=== PATIENT | female | born 1995 | race Caucasian/White ===

== ENCOUNTER 2016-11-22 16:30 | Emergency (ER) | payer MEDICAID ==
--- NOTE | 2016-11-22 17:20 | EDPHY ---
H & P Time Seen by Provider: 11/22/16 16:55 HPI/ROS: CHIEF COMPLAINT: Feels the need to take a deep breath HISTORY OF PRESENT ILLNESS: This patient is a 21 year old female with history of asthma complaining of an insatiable need to take a deep breath. She returned to [place] 10 days ago from [place], where she spent the summer. Since returning, she has experienced difficulty breathing and has been using her albuterol inhaler multiple times per day. Today , she has felt it is nearly impossible to take a deep breath, and has a tight feeling in her lungs. She usually uses her inhaler prior to exercise only. She did have a stressful summer, and has been feeling "off" since coming home. A phone nurse at her primary care physician's office recommended evaluation at the emergency department due to the patient's complaint of difficulty breathing. She denies cough, fever or other associated symptoms. REVIEW OF SYSTEMS: A 10 point review of systems was performed and is negative with the exception of the elements mentioned in the history of present illness. Past Medical/Surgical History: Asthma (allergy and exercise-induced) Social History: [employer] student. Lives in [place]. Smoking Status: Never smoked Physical Exam: General Appearance: Alert, pleasant, occasionally take an extra deep breath Eyes: Pupils equal and round, no conjunctival pallor or injection ENT, Mouth: Mucous membranes moist Neck: Normal inspection Respiratory: normal respiratory rate, lungs are clear to auscultation, no wheezing Cardiovascular: Regular rate and rhythm Gastrointestinal: Abdomen is soft and non-tender Neurological: A&O, nonfocal, normal gait Skin: Warm and dry, no rash Extremities: Nontender, no pedal edema Constitutional: Initial Vital Signs Temperature (C) 36.8 C 11/22/16 16:35 Heart Rate 74 11/22/16 16:35 Respiratory Rate 24 H 11/22/16 16:35 Blood Pressure 120/65 11/22/16 16:35 O2 Sat (%) 100 11/22/16 16:35 O2 Delivery Mode Room Air Allergies/Adverse Reactions: No Known Allergies Allergy (Unverified 03/21/15 23:36) Home Medications: Medication Instructions Recorded Adderall 20 mg (*) 11/22/16 MINOCYCLINE HCL 11/22/16 Medical Decision Making - Diagnostics Imaging Results: CXR: NAD Imaging: I viewed and interpreted images myself ED Course/Re-evaluation: 21 year old female with history of asthma presents with sensation of not being able to take a deep breath. Lungs clear to auscultation bilaterally. Plan for chest x-ray. Chest x-ray unremarkable. O2 sat remains 98% on RA. Ambulated in ED; O2 sat 98 % on RA during and after exercise. d/w pt anxiety component of sx, which she agrees with. No clinical suspicion of PE; no RF, normal VS/O2 sat. Plan to discharge home in good condition. Follow up and return precautions discussed. The patient is comfortable with this plan. Differential Diagnosis: includes though not limited to pneumonia, bronchospasm, PTX, PE, pulm edema Departure - Departure Disposition: Home, Routine, Self-Care Clinical Impression: Dyspnea Condition: Good Instructions: Stress (ED), Dyspnea (ED) Additional Instructions: 1. Follow up with your primary care provider for continued management of your symptoms and asthma medication regimen. 2. Return to the emergency department for worsening shortness of breath, uncontrollable cough, chest pain, fever, or other worsening of condition. 3. We have provided some additional general information regarding stress relief. Referrals: Barbra Gonzalez MD [Primary Care Provider] - As per Instructions Report Scribed for: Linda Duque Report Scribed by: Jennifer Humphries Date of Report: 11/22/16 Time of Report: 17:18 Physician Review and Approval Statement: 11/22/16 17:18 Portions of this note were transcribed by a medical massage therapist. I personally performed a history, physical exam, medical decision making, and confirmed accuracy of information the transcribed note.
[2016-11-22 18:23] VITALS: BP 114/72; PULSE 87; RESP 16; TEMP 98.4; O2SAT 97
== END 2016-11-22 18:22 | disposition home or self-care (01) ==
DX: R06.00 Dyspnea, unspecified (principal); J45.909 Unspecified asthma, uncomplicated

== ENCOUNTER → 2017-10-17 | Outpatient (CLI) | payer MEDICAID | LOC: FIMAGING 10:53 | PROVIDERS: ATTEND Family Medicine | DX: M25.861 Other specified joint disorders, right knee (principal); M25.862 Other specified joint disorders, left knee | CPT/HCPCS: 86694-90 ==